=== PATIENT | female | born 1965 | race Caucasian/White ===

== ENCOUNTER → 2021-11-13 | Outpatient (CLI) | payer BC ==
--- NOTE | 2021-11-13 13:34 | Diagnostic Imaging Report ---
INDICATION: Right shoulder pain. TIME OF EXAM: 11:21 a.m. TECHNIQUE: Four views of the right shoulder were obtained. FINDINGS: Glenohumeral and acromioclavicular alignment are normal. Acromiohumeral space is normal. No fracture or dislocation is seen. IMPRESSION: No acute bony abnormality is detected. Dictated by: Dictated on workstation # [id number]
== END ==
LOC: RAD FS 11:12
PROVIDERS: ATTEND Nurse Practitioner
DX: M25.511 Pain in right shoulder (principal)
CPT/HCPCS: 73030

== ENCOUNTER 2022-10-06 06:54 | Emergency (ER) | payer BC ==
[~2022-10-06] VITALS: Ht 157.5 cm; Wt 69.0 kg
[2022-10-06 07:13] VITALS: BP 129/55
[2022-10-06] MEDS ORDERED: NS IV 1000 ML 1,000 ML IV STA (07:27)
[2022-10-06] MEDS ORDERED: KETOROLAC 30 MG/ML VIAL IVP STA (07:27)
[2022-10-06] MEDS ORDERED: PANTOPRAZOLE 40 MG (PROTONIX) VIAL IV STA (07:27)
--- NOTE | 2022-10-06 07:35 | ED Cough/URI ---
General Chief Complaint: Cough/Cold/Flu Symptoms Stated Complaint: COUGH/VOMITING/NAUSEA Nursing Triage Note: Patient states she began having fever/chills/sore throat/body aches on Saturday, and now has nasal congestion/drainage/cough/nausea/vomiting. She states she had a telehealth visit on Saturday and was prescribed an antibiotic for possible strep throat and nystatin for possible oral thrush. She is concerned that she has been unable to keep her antibiotic down and has not kept fluids down well overnight. Source: patient History of Present Illness Date Seen by Provider: Oct 06, 2022 Time Seen by Provider: 07:08 Initial Comments 56-year-old female presenting with complaints of a week of headache, cough, sore throat. She is feeling coughing to the point that she gags and vomits. She did a telehealth visit on Saturday and the provider was treating her for presumptive strep throat. She was unable to take the amoxicillin because the pills were large and it was gagging or making her throw up. She had been taking some ibuprofen that he prescribed but it was irritating her stomach. She is feeling like she is dehydrated as she was vomiting in the last 24 hours and not keeping things down. She was able to eat a bowl of cereal this morning and keep it down. She was having chest wall pain from coughing. The telehealth doctor and also prescribed nystatin as she had some white areas on her tongue so they were trying to treat her for possible thrush. Timing/Duration: week Severity/Quality: severe, productive cough (Getting up small amounts of mucus at a time but coughing to the point that she vomits) Prior Episodes/Possible Cause: no prior episodes Modifying Factors: Worse With Activity, Worse With Coughing Associated Symptoms: chest pain/soreness (Chest wall pain from coughing), cough, dizziness, fever/chills (Subjective), headache, lightheadedness, muscle aches, nasal congestion, nasal drainage, shortness of breath, sore throat Allergies and Home Medications Allergies Coded Allergies: codeine (Verified Allergy, Unknown, 10/06/22) Patient Home Medication List Home Medication List Reviewed: Yes Benzonatate (Benzonatate) 200 Mg Capsule, 200 MG PO TID PRN for COUGH Prescribed by: STEFANO AGARWAL on 10/06/22 0804 Review of Systems Review of Systems Constitutional: see HPI EENTM: see HPI Respiratory: see HPI Cardiovascular: see HPI Gastrointestinal: see HPI, loss of appetite; No nausea; vomiting Genitourinary: decreased output; No dysuria Musculoskeletal: see HPI Skin: No rash Psychiatric/Neurological: Headache Past Cgaqjcn-[id number]-Eyoglq Hx Patient Social History Tobacco Use?: No Substance use?: No Alcohol Use?: No Pt feels they are or have been: No Immunizations Up To Date Influenza Vaccine Up-to-Date: Yes; Up-to-Date First/Initial COVID19 Vaccinat: YES Past Medical History Surgery/Hospitalization HX: Hysterectomy Physical Exam Vital Signs - First Documented 10/06/22 07:13 Temp 36.6 Pulse 99 Resp 18 B/P (MAP) 129/55 (79) Pulse Ox 96 O2 Delivery Room Air Capillary Refill : Less Than 3 Seconds Height: '" Weight: lbs. oz. kg; 27.00 BMI Method: General Appearance: WD/WN, no apparent distress (appears to not feel well) HEENT: PERRL/EOMI; No photophobia; pharyngeal erythema; No tonsillar exudate Neck: non-tender, full range of motion, supple, normal inspection Respiratory: No chest non-tender (tender to palpation chest wall); lungs clear, normal breath sounds, no respiratory distress, no accessory muscle use Cardiovascular: normal peripheral pulses, regular rate, rhythm Gastrointestinal: normal bowel sounds, non tender, soft, no pulsatile mass Extremities: normal range of motion, non-tender, normal capillary refill Neurologic/Psychiatric: alert, oriented x 3 Skin: normal color, warm/dry Progress/Results/Core Measures Suspected Sepsis SIRS Temperature: Pulse: 99 Respiratory Rate: 18 Blood Pressure 129 /55 Mean: 79 Results/Orders Lab Results Laboratory Tests Test 10/06/22 07:08 Range/Units Influenza Type A (RT-PCR) Detected H Not Detecte Influenza Type B (RT-PCR) Not Detected Not Detecte SARS-CoV-2 RNA (RT-PCR) Detected H Not Detecte Group A Streptococcus Screen NEGATIVE NEGATIVE My Orders Orders - STEFANO AGARWAL MD Covid 19 Inhouse Test (10/06/22 07:16) Rapid Strep A Screen (10/06/22 07:16) Influenza A And B By Pcr (10/06/22 07:16) Isolation Central Supply Req (10/06/22 07:16) Ed Iv/Invasive Line Start (10/06/22 07:27) Ns Iv 1000 Ml (Sodium Chloride 0.9%) (10/06/22 07:27) Ketorolac Injection (Toradol Injection) (10/06/22 07:27) Pantoprazole Injection (Protonix Injecti (10/06/22 07:27) Benzonatate Capsule (Tessalon Perles) (10/06/22 07:58) Vital Signs/I&O 10/06/22 10/06/22 07:13 07:36 Temp 36.6 36.6 Pulse 99 Resp 18 B/P (MAP) 129/55 (79) Pulse Ox 96 O2 Delivery Room Air Capillary Refill : Less Than 3 Seconds Blood Pressure Mean: 79 Progress Note #1: Progress Note Swab for rapid strep as well as COVID and influenza were sent to the lab. With patient having oxygen saturation of 97 to 99% on room air and her pulmonary exam was clear to auscultation of her lungs will defer chest x-ray for now. Administer IV fluid normal saline 1 L bolus for hydration, Toradol 30 mg IV for body aches and pain, Protonix 40 mg IV for epigastric irritation. Progress Note #2: Progress Note Rapid strep test negative. Influenza A and Covid are both positive. Counseled patient on findings and discussed treatment options. Encourage fluids and hydration. Continue to wear a mask while you have symptoms. Try Benzonatate to help with cough in addition to pushing fluids and rest. reviewed symptomatic care and treatment options as well. She is outside of window that Tamiflu would have the most effect and with a week of symptoms Paxlovid would likely not help much if any. I did discuss these medicines with her and she was in agreement that with having a week of symptoms she felt they would likely not help her. Departure Impression Primary Impression: Influenza A Additional Impressions: Upper respiratory infection with cough and congestion Post-tussive emesis COVID-19 Disposition: 01 HOME, SELF-CARE Condition: Stable Departure-Patient Inst. Decision time for Depature: 07:59 Referrals: SELF,JULIAN COFFMAN (PCP/Family) Primary Care Physician Patient Instructions: Upper Respiratory Infection ED, Flu, Adult ED, Cough, Adult ED, COVID-19 ED Add. Discharge Instructions: Wear a mask while around others and especially while you are still having symptoms. You are past the initial 5 day quarantine window for Covid so you could be around others but its recommended that you continue to wear a mask while you have symptoms of cough, congestion, sore throat. Try Tessalon Pearls to help with cough. Continue with Robitussin to help loosen and thin out congestion and ease your cough. For body aches you could take over the counter Ibuprofen so it was easier for you to swallow. You may take 2 to 3 over the counter pills every 6 hours as needed for fever, body aches. Consider drinking protein shakes to help with nutrition and hydration. Electrolyte drinks such as Liquid IV, Pedialyte, Gatorade can all help with hydration and electrolytes to help with your body aches and energy. Check back with primary care provider for continued concerns. All discharge instructions reviewed with patient and/or family. Voiced understanding. Scripts Benzonatate (Benzonatate) 200 Mg Capsule 200 MG PO TID PRN for COUGH for 5 Days, #15 CAP 0 Refills Prov: STEFANO AGARWAL MD 10/06/22 STEFANO AGARWAL MD Oct 06, 2022 07:34
[2022-10-06] MEDS ORDERED: BENZONATATE 100 MG (TESSALON) CAPSULE PO STA (07:58)
[2022-10-06] MEDS ORDERED: BENZ200C51 PO (08:04)
== END 2022-10-06 08:06 | disposition home or self-care (01) ==
LOC: EDUNIT# 06:54 → ER FS 06:59
DX: J10.1 Influenza due to other identified influenza virus with other respiratory manifestations (principal); U07.1 COVID-19; R11.10 Vomiting, unspecified
CPT/HCPCS: 87430; 87636; 99283